=== PATIENT | female | born 1980 | race Caucasian/White ===

== ENCOUNTER 2016-12-17 18:08 | Observation (INO) | payer OTHER ==
[2016-12-17 18:32] LABS: URINE BILIRUBIN NEGATIVE (NEG); URINE BLOOD NEGATIVE (NEG); URINE GLUCOSE (UA) NEGATIVE (NEG); URINE KETONE NEGATIVE (NEG); URINE LEUKOCYTE ESTERASE NEGATIVE (NEG); URINE NITRITE NEGATIVE (NEG); URINE PROTEIN NEGATIVE (NEG); URINE SPECIFIC GRAVITY 1.015 (1.003-1.030)
[2016-12-17 18:48] LABS: URINE APPEARANCE CLEAR; URINE COLOR YELLOW
[2016-12-17] MEDS ORDERED: ZYRTEC10 M7 PO (18:58)
[2016-12-17] MEDS ORDERED: PRENA1 CHEW TA1.4 M1 PO (18:58)
[2016-12-17] MEDS ORDERED: VISTARIL25 M1 PO (18:59)
[2016-12-17] MEDS ORDERED: PROTONIX40 M2 PO (19:01)
[2017-01-26] MEDS ORDERED: IRON 100 PLUS1 EACH PO (20:31)
[2017-01-31] MEDS ORDERED: IBUPROFEN800 M1 PO (09:16)
[2017-01-31] MEDS ORDERED: NORCO 5-325 TA1 EACH PO (09:18)
[2017-01-31] MEDS ORDERED: AMOXICILLIN500 M1 PO (09:19)
== END 2016-12-17 20:45 ==
LOC: LDR 18:08
PROVIDERS: ADMIT Family Medicine
DX: O99.89 Other specified diseases and conditions complicating pregnancy, childbirth and the puerperium (principal); M54.9 Dorsalgia, unspecified; Z3A.33 33 weeks gestation of pregnancy; Z88.8 Allergy status to other drugs, medicaments and biological substances; Z79.899 Other long term (current) drug therapy